=== PATIENT | female | born 1970 | race Caucasian/White ===

== ENCOUNTER 2019-07-08 07:34 | Emergency (ER) | payer OTHER, SELFPAY ==
[2019-07-08 07:37] VITALS: BMI 34.3
--- NOTE | 2019-07-08 07:50 | ED_ITS ---
Entered by Princess Clark, acting as scribe for Josué Sanchez DO HPI - Chest Pain General: Chief Complaint: Chest Pain Stated Complaint: CP Time Seen by Provider: 07/08/19 07:48 Source: patient Mode of arrival: ambulatory Limitations: no limitations History of Present Illness: HPI narrative: 49 yo female presents with chest soreness. 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 pt states she then fell asleep or passed out. pt states she was woke up from her spouse because she was late getting up for work. pt states the soreness is located on L chest. pt has had diarrhea. pt states she has had increased tiredness. pt denies any other symptoms at this time. MD complaint: chest pain and chest discomfort Onset (ago): hour(s) (just tugboat captain) Timing of current episode: constant and still present Prior episodes: No Onset: during rest Pain location: left chest Pain radiation: none Severity: mild Quality: other (soreness) Relieving factors: nothing Exacerbating factors: nothing Associated symptoms: Reports no associated symptoms; Deny abdominal pain, dyspnea, fever(s), nausea or vomiting Treatment prior to arrival: none Review of Systems General: Reports: 10 or more systems reviewed and unremarkable except in HPI and below Const: Reports: fatigue and other (diarrhea); Denies: fever, chills, body aches, change in appetite or change in weight ENMT: Denies: throat pain, ear pain, nasal discharge or nasal congestion Card: Reports: chest pain; Denies: edema, shortness of breath on exertion or shortness of breath when lying down Resp: Denies: shortness of breath, productive cough or non-productive cough GI: Denies: abdominal pain, nausea, vomiting, vomiting blood, coffee grounds in vomit, diarrhea, constipation, bloating, blood in stool or black tarry stool : Denies: flank pain, difficulty urinating, painful urination, urinary frequency or urinary urgency Skin/Breast: Denies: rash or itching PFS ED PFSH: Medical History (Updated 07/08/19 @ 11:23 by Josué Sanchez DO) Lower extremity surgery planned Social History (Updated 05/30/19 @ 17:05 by Gail Spomer-Houts, DIRECTOR OF SUPPLY CHAIN) Smoking and tobacco status: current every day smoker Physical Exam Const: COMMON NORMALS: average body habitus, oriented x3 and alert GENERAL APPEARANCE: cooperative, comfortable, well kempt and well developed NUTRITIONAL APPEARANCE: obese ORIENTATION/CONSCIOUSNESS: Yes awake, Yes oriented to person and Yes oriented to place HENMT: COMMON NORMALS: normocephalic, head/scalp atraumatic, EAC's normal, TM's normal bilaterally, external nose normal, moist oral mucous membranes and oropharynx normal HEAD & SCALP: normocephalic and atraumatic NOSE: external nose normal EXTERNAL AUDITORY CANAL: EAC's normal TYMPANIC MEMBRANE: TM's normal bilaterally MOUTH: oral and palatal mucosa normal, lip normal and tongue normal THROAT: posterior oropharynx normal and tonsils normal Eye: COMMON NORMALS: PERRL, EOMs intact bilaterally, conjunctivae normal and no scleral icterus CONJUNCTIVA: Yes conjunctivae normal PUPIL: Yes PERRL Neck/C-Spine: COMMON NORMALS: full ROM, no lymphadenopathy, supple, no me ningeal signs and thyroid normal THYROID: thyroid normal and asymmetrical Lymph: LYMPHATIC: no lymphadenopathy noted Chest: CHEST: Yes tenderness sternum (Upper left aspect) Resp: COMMON NORMALS: normal respiratory effort, no retractions, no use of accessory muscles and clear to auscultation bilaterally AUSCULTATION: clear to auscultation bilaterally GI: COMMON NORMALS: normal to inspection, nondistended, normoactive bowel sounds, soft to palpation and no hepatosplenomegaly PALPATION: Yes soft and Yes no hepatosplenomegaly : COMMON NORMALS: Yes no CVA tenderness BLADDER/KIDNEY EXAM: Yes no CVA tenderness Back/Pelvis: COMMON NORMALS: no CVA tenderness LUMBAR SPINE/LOWER BACK: Yes normal to inspection Extremity: COMMON NORMALS: no clubbing, cyanosis or edema, no calf tenderness and no pedal edema Neuro: COMMON NORMALS: oriented x3 SENSORIUM/ORIENTATION: Yes alert, Yes oriented to person and Yes oriented to place MENINGEAL SIGNS: Yes no meningeal signs Psych: APPEARANCE: Yes well kempt Skin: COMMON NORMALS: no rashes or lesions noted and skin turgor normal GENERAL SKIN EXAM: no rashes or lesions noted and turgor normal Course ED course: Troponins negative pain mildly reproducible palpation discharged home. Return if has problems Vital Signs: Vital signs: Vital Signs Pulse Rate 72 02/20 11:30 Respiratory Rate 17 07/08/19 11:30 Blood Pressure 129/63 07/08/19 11:30 Pulse Oximetry 99 07/08/19 11:30 MDM - Chest Pain Lab Data: Labs: Lab Results 07/08/19 07/08/19 07/08/19 Range/Units 07:50 07:50 07:50 WBC 6.9 (4.0-10.0) 10^3/ uL RBC 4.29 (4.1-5.3) 10^6/u L Hgb 15.0 (11.5-15.3) g/dL Hct 44.2 (37.0-47.0) % MCV 103.0 H (81-99) fL MCH 35.0 H (28.0-34.0) pg MCHC 33.9 (30.0-36.0) g/dL RDW 13.8 (12.1-15.1) % Plt Count 234 (130-400) 10^3/c mm MPV 10.2 (7.4-10.4) fL Neut % (Auto) 59.3 % Lymph % (Auto) 32.2 % Maries % (Auto) 7.1 % Eos % (Auto) 0.7 % Baso % (Auto) 0.4 % Neut # (Auto) 4.1 (1.8-7.7) 10^3/u L Lymph # (Auto) 2.2 (0.8-4.8) 10^3/u L Maries # (Auto) 0.5 (0.2-0.9) 10^3/u L Eos # (Auto) 0.1 (0.0-0.8) 10^3/u L Baso # (Auto) 0.0 (0.0-0.1) 10^3/u L Nucleated RBC % (a uto) 0 % Nucleated RBCs # 0.0 /100WBC Sodium 139 (136-145) mmol/L Potassium 4.0 (3.5-5.1) mmol/L Chloride 100 (98-107) mmol/L Carbon Dioxide 26 (22-29) mmol/L Anion Gap 17.0 (5-19) BUN 8 (6-20) mg/dL Creatinine 0.8 (0.5-0.9) mg/dL GFR Calculation 76.6 L (90-130) mL/min Glucose 118 H (65-115) mg/dL Calcium 9.5 (8.5-10.5) mg/dL Total Bilirubin 0.3 (0.15-1.2) mg/dL AST 38 H (0-32) U/L ALT 53 H (0-33) U/L Alkaline Phosphata se 81 (35-105) IU/L Troponin T Baselin e 7 (0-10) ng/mL Troponin T 120 Min [place] (0-10) ng/mL Delta Troponin T (0-10) ABS# Total Protein 8.0 (6.6-8.7) g/dL Albumin 4.3 (3.5-5.2) g/dL Globulin 3.7 (1.3-4.6) g/dL 07/08/19 Range/Units 09:50 WBC (4.0-10.0) 10^3/ uL RBC (4.1-5.3) 10^6/u L Hgb (11.5-15.3) g/dL Hct (37.0-47.0) % MCV (81-99) fL MCH (28.0-34.0) pg MCHC (30.0-36.0) g/dL RDW (12.1-15.1) % Plt Count (130-400) 10^3/c mm MPV (7.4-10.4) fL Neut % (Auto) % Lymph % (Auto) % Maries % (Auto) % Eos % (Auto) % Baso % (Auto) % Neut # (Auto) (1.8-7.7) 10^3/u L Lymph # (Auto) (0.8-4.8) 10^3/u L Maries # (Auto) (0.2-0.9) 10^3/u L Eos # (Auto) (0.0-0.8) 10^3/u L Baso # (Auto) (0.0-0.1) 10^3/u L Nucleated RBC % (a uto) % Nucleated RBCs # /100WBC Sodium (136-145) mmol/L Potassium (3.5-5.1) mmol/L Chloride (98-107) mmol/L Carbon Dioxide (22-29) mmol/L Anion Gap (5-19) BUN (6-20) mg/dL Creatinine (0.5-0.9) mg/dL GFR Calculation (90-130) mL/min Glucose (65-115) mg/dL Calcium (8.5-10.5) mg/dL Total Bilirubin (0.15-1.2) mg/dL AST (0-32) U/L ALT (0-33) U/L Alkaline Phosphata se (35-105) IU/L Troponin T Baselin e (0-10) ng/mL Troponin T 120 Min [place] 7.85 (0-10) ng/mL Delta Troponin T 0.85 (0-10) ABS# Total Protein (6.6-8.7) g/dL Albumin (3.5-5.2) g/dL Globulin (1.3-4.6) g/dL Imaging Data^: CXR: Radiologist's impression: [place] [address] XRay Report Signed Patient: Gail Altamirano #: [id number] : 1970Acct#:[id number] Age/Sex: 49 / FADM Date: 07/08/19 Loc: [facility]Bed: Attending Dr: Ordering Provider/Ordering MD: Josué Sanchez DO Date of Service: 07/08/19 Procedure(s): XR chest 1V portable [id number] Accession Number(s): [id number] Report Number: [id number] WS: [id number] PORTABLE CHEST HISTORY: dyspnea/cough COMPARISON: 05/04/2014 Benign granuloma LEFT upper lobe. Stable irregular opacification at the RIGHT lung base may be additional granuloma. No pleural effusion or pneumothorax. Cardiac size: Normal. Mediastinum/Aorta: Calcified LEFT hilar lymph nodes. No osseous abnormality seen. XR/XR chest 1V portable [id number] IMPRESSION: Unremarkable portable chest. Dictated By:Salma Rose DO Signed By:Salma Rose DOSigned Date/Time:07/08/19812 DD/ 1 Discharge Plan Discharge Patient Disposition: Home, Self-Care Clinical Impression: Atypical chest pain Condition: Stable Prescriptions: New Pepcid 40 mg tablet 40 mg PO DAILY Qty: 30 RF: 0 Discharge Orders: Discharge Order (Routine); Ordered 07/08/19 Ordered By: Josué Sanchez Referrals: Tonya Paniagua MD [Primary Care Provider] - Discharge Diet: Usual diet Discharge Activity: Resume usual activity Activity Restrictions/Additional Instructions: Case management will call for a referral to a primary care physician Discharge Date/Time: 07/08/19 11:31 Coding Level of Care Code ED Director Of Rooms for Chg Fwd Exam Problem Focused The documentation recorded by the Eduardo pollock Bridget Annette, accurately reflects the service I personally performed and the decisions made by Laura shankar Curtis L, Jul 08, 2019 07:34
--- NOTE | 2019-07-08 07:54 | XR_ITS ---
WS: [id number] PORTABLE CHEST HISTORY: dyspnea/cough COMPARISON: 05/04/2014 Benign granuloma LEFT upper lobe. Stable irregular opacification at the RIGHT lung base may be additi onal granuloma. No pleural effusion or pneumothorax. Cardiac size: Normal. Mediastinum/Aorta: Calcified LEFT hilar lymph nodes. No osseous abnormality seen. XR/XR chest 1V portable [id number] IMPRESSION: Unremarkable portable chest.
--- NOTE | 2019-07-08 07:54 | ECG_ITS ---
Measurements Intervals [place] Rate: 84 P: 65 SC: 164 QRS: 5 QRSD: 99 T: 44 QT: 383 QTc: 455 SINUS RHYTHM No previous ECG available for comparison Electronically Signed On 07-08-2019 20:47:10 PASTE UP ARTIST by Carol Ann Blankenship M.D. [email or web address]
[2019-07-08 07:56] VITALS: O2SAT 96
[2019-07-08 08:11] LABS: Basophils % 0.4 %; Eosinophils # 0.1 10^3/uL (0.0-0.8); Eosinophils % 0.7 %; Hematocrit 44.2 % (37.0-47.0); Lymphocytes # 2.2 10^3/uL (0.8-4.8); Lymphocytes % 32.2 %; Mean Corpuscular HGB Conc 33.9 g/dL (30.0-36.0); Mean Platelet Volume 10.2 fL (7.4-10.4); Monocytes # 0.5 10^3/uL (0.2-0.9); Monocytes % 7.1 %; Neutrophils # 4.1 10^3/uL (1.8-7.7); Neutrophils % 59.3 %; Nucleated Red Blood Cells % 0 %; Platelet Count 234 10^3/cmm (130-400); Red Blood Count 4.29 10^6/uL (4.1-5.3); Red Cell Distribution Width 13.8 % (12.1-15.1); White Blood Count 6.9 10^3/uL (4.0-10.0)
[2019-07-08 08:28] LABS: Alanine Aminotransferase 53 U/L (0-33); Albumin Level 4.3 g/dL (3.5-5.2); Alkaline Phosphatase 81 IU/L (35-105); Aspartate Amino Transferase 38 U/L (0-32); Blood Urea Nitrogen 8 mg/dL (6-20); Calcium 9.5 mg/dL (8.5-10.5); Carbon Dioxide 26 mmol/L (22-29); Chloride 100 mmol/L (98-107); Globulin 3.7 g/dL (1.3-4.6); Glomerular Filtration Rate 76.6 mL/min (90-130); Glucose 118 mg/dL (65-115); Sodium 139 mmol/L (136-145); Total Bilirubin 0.3 mg/dL (0.15-1.2)
[2019-07-08 08:29] LABS: Troponin(5th) Baseline 7 ng/mL (0-10)
[2019-07-08 10:17] LABS: Troponin 5 2HR 7.85 ng/mL (0-10); Troponin 5 2HR Delta 0.85 ABS# (0-10)
[2019-07-08 11:30] VITALS: BP 129/63; PULSE 72; RESP 17; O2SAT 99
--- NOTE | 2019-07-08 13:54 | ECG_ITS ---
Measurements Intervals [place] Rate: 70 P: 53 SD: 167 QRS: -7 QRSD: 89 T: 29 QT: 414 QTc: 447 SINUS RHYTHM No previous ECG available for comparison Electronically Signed On 07-08-2019 20:51:51 OUTBOARD MOTOR TESTER by Carol Ann Blankenship M.D. [email or web address]
--- NOTE | 2019-07-13 12:24 | DCPLANNER ---
corporate development manager had message to get patient established with a primary care physician. corporate development manager spoke with patient about getting established with a primary care physician. Patient stated that she would like for director of casework to get her established somewhere and schedule a follow up appointment for her. corporate development [place] [facility] [place] and a follow up appointment was scheduled for Thursday, July 20, 2019 at 1:00 with INDEPENDENT DRIVER, Anayeli Holcomb. corporate development manager called patient and informed patient of the scheduled appointment.
--- NOTE | 2019-08-04 10:06 | DCPLANNER ---
Patient did not attend appointment scheduled for 07.20.19 with [facility]
== END 2019-07-08 11:31 | disposition home or self-care (01) ==
PROVIDERS: Emergency Provider Family Medicine; PCP Family Medicine
DX: R07.89 Other chest pain (principal); F17.200 Nicotine dependence, unspecified, uncomplicated
CPT/HCPCS: 36415; 71045; 80053; 84484; 85025; 93005; 99283

== ENCOUNTER → 2021-10-25 13:51 | Outpatient (BNVA) | payer OTHER, SELFPAY | PROVIDERS: PCP Nurse Practitioner; Visit Provider Obstetrics & Gynecology | DX: Z12.4 Encounter for screening for malignant neoplasm of cervix (principal); Z12.39 Encounter for other screening for malignant neoplasm of breast; N95.0 Postmenopausal bleeding | CPT/HCPCS: 83001; 85025; 87624 ==

== ENCOUNTER 2021-11-06 12:07 | Outpatient (CLI) | payer OTHER, SELFPAY ==
--- NOTE | 2021-11-06 11:45 | US_ITS ---
WS: [id number] TRANSABDOMINAL PELVIC AND TRANSVAGINAL PELVIC ULTRASOUND HISTORY: N95.0 - Postmenopausal bleeding COMPARISON: None available. Uterus: 7.0 cm x 4.4 cm x 3.4 cm. Normal size anteverted uterus. Mild heterogeneity within the myomet rium. Hypoechoic mass in the posterior myometrium consistent with fibroid measures 1.6 x 1.5 x 1.0 cm . Endometrium: 0.6 cm. Normal. Endometrium is top normal size. Very slight splaying of the endometrium seen best on image 85. A small central polyp should not be excluded. Right ovary: Not visualized. No adnexal mass. Left ovary: 1.8 cm x 1.7 cm x 1.1 cm. Small ovary. No solid or cystic mass. Normal vascularity. No free fluid. US/US pelvic with transvaginal IMPRESSION: 1. Endometrium is top normal size. No discrete hypoechoic mass identified or i ncreased vascularity. Consider direct visualization or short-term follow-up. Ti ny central hyperechoic polyp is not completely excluded. Please refer to image 85. 2. RIGHT ovary not visualized. 3. Small fibroid.
== END 2021-11-06 12:08 | disposition home or self-care (01) ==
LOC: RAD 12:08
PROVIDERS: PCP Nurse Practitioner; Visit Provider Obstetrics & Gynecology
DX: N95.0 Postmenopausal bleeding (principal)
CPT/HCPCS: 76830; 76856

== ENCOUNTER 2021-11-08 08:15 | Outpatient (CLI) | payer OTHER, SELFPAY ==
--- NOTE | 2021-11-08 08:20 | MM_ITS ---
WS: [id number] SCREENING DIGITAL BREAST TOMOSYNTHESIS MAMMOGRAM WITH CAD HISTORY: SCREEN COMPARISON: None available. Bilateral CC and MLO with tomosynthesis and synthetic mammography submitted. Computer aided detection analyzed. Breast composition: The breasts are heterogeneously dense, which may obscure small masses. Partially obscured masses in the upper outer quadrant of each breast need further evaluation. The lar gest on the RIGHT at a middle depth measures 2.9 x 2.1 cm. On the LEFT the mass measures 2.2 x 1.4 cm and is more anterior. No suspicious calcification or distortion. MM/[place] [id number] IMPRESSION: BI-RADS: 0-Incomplete: Need additional imaging evaluation FOLLOW UP: Need Additional Imaging Bilateral breasts: Spot compression views (CC and MLO). True ML. Ultrasound to follow if abnormality persists.
== END 2021-11-08 08:16 | disposition home or self-care (01) ==
LOC: RAD 08:16
PROVIDERS: Visit Provider Obstetrics & Gynecology
DX: Z12.31 Encounter for screening mammogram for malignant neoplasm of breast (principal)
CPT/HCPCS: 77063; 77067

== ENCOUNTER 2021-12-02 15:19 | Outpatient (CLI) | payer OTHER, SELFPAY ==
--- NOTE | 2021-12-02 15:26 | MM_ITS ---
WS: [id number] ADDITIONAL VIEWS BILATERAL MAMMOGRAM AND BILATERAL BREAST ULTRASOUND, WITH DIGITAL BREAST tomosynthes is. ADDITIONAL VIEWS BILATERAL MAMMOGRAM WITH DIGITAL BREAST TOMOSYNTHESIS AND SM. HISTORY: Inconclusive mammogram. COMPARISON: 11/08/2021 Right breast: Ovoid mass RIGHT breast at a middle depth measures 10 x 8 mm. This is central to the ni pple on the lateral projection and just lateral. This should be near 8-9 o'clock. Left breast: There are 2 partially obscured masses within the LEFT breast at an anterior to middle de pth. The larger mass measures 15 x 14 mm near 2:00. There is a smaller nodule measuring 9 x 10 mm sli ghtly more anterior probably near 3:00. BREAST ULTRASOUND RIGHT breast: 8:00, 4 cm nipple is a hypoechoic mass. Solid mass measuring 9 x 5.9 mm. No increased v ascularity. There is an additional very hypoechoic area measuring 5 x 3 x 10 mm at 7:00. May be a pro minent duct. LEFT breast: LEFT breast 2:00, 3 cm from the nipple is a simple cyst measuring 18 x 10 x 18 mm. Addit ional hypoechoic mass at 3:00, 1 cm from the nipple measures 12 x 8 x 12 mm. Hypoechoic mass which is probably a lymph node at 3:00, 2 cm from nipple measures 8 x 4 x 7 mm. MM/[place] [id number] IMPRESSION: BI-RADS: 4-Suspicious Finding-Biopsy Should Be Considered FOLLOW UP: Biopsy Recommended 1. Ultrasound-guided biopsy solid mass RIGHT breast 8:00, 4 cm from the nipple . 2. Ultrasound-guided biopsy solid hypoechoic mass LEFT breast at 3:00, 1 cm fr om the nipple. 3. Additional simple cyst LEFT breast at 3:00, no biopsy necessary.
== END 2021-12-02 15:20 | disposition home or self-care (01) ==
PROVIDERS: PCP Obstetrics & Gynecology; Visit Provider Obstetrics & Gynecology
DX: R92.8 Other abnormal and inconclusive findings on diagnostic imaging of breast (principal)
CPT/HCPCS: 76642; 77062

== ENCOUNTER 2021-12-27 11:32 | Outpatient (CLI) | payer OTHER, SELFPAY ==
--- NOTE | 2021-12-27 11:52 | US_ITS ---
WS: [id number] ULTRASOUND-GUIDED LEFT BREAST BIOPSY HISTORY: LEFT breast mass at 3:00, 1 cm from the nipple. COMPARISON: 12/02/2021 Procedure, risks and complications are explained to the patient. Medications are reviewed. Consent is obtained. The mass in the LEFT breast is localized with ultrasound. Mass at 3:00, 1 cm from the nipple. Skin is cleansed with ChloraPrep and anesthetized with 1% buffered lidocaine. Small dermatome is made. Under sterile conditions mass is biopsied with a 14-gauge Achieve needle. Multiple core biopsies are perfo rmed. Material placed in formalin and sent to pathology for review. No complications encountered. Breast tissue marker (Bard ultrasound enhanced ribbon): Single. Patient left the radiology suite with no complications. Patient is instructed to return to [facility] or [facility] with any concerns. US/[place] [id number] IMPRESSION: 1. Uncomplicated core needle biopsy LEFT breast mass at 3:00. PATHOLOGY: Benign breast tissue with fibrocystic changes and chronic inflammati on. No malignancy. RECOMMENDATION: Return to annual screening mammography.
--- NOTE | 2021-12-27 11:52 | US_ITS ---
WS: [id number] ULTRASOUND-GUIDED RIGHT BREAST BIOPSY HISTORY: RIGHT breast mass at 8:00. COMPARISON: 12/02/2021 Procedure, risks and complications are explained to the patient. Medications are reviewed. Consent is obtained. The mass in the RIGHT breast is localized with ultrasound. Mass localizes to 8:00, 4 cm from the nipp le. Skin is cleansed with ChloraPrep and anesthetized with 1% buffered lidocaine. Small dermatome is made. Under sterile conditions mass is biopsied with a 14-gauge Achieve needle. Multiple core biopsie s are performed. Material placed in formalin and sent to pathology for review. No complications encou ntered. Breast tissue marker (Bard ultrasound enhanced ribbon): Single. Patient left the radiology suite with no complications. Patient is [place] [facility] [place] [facility] with any concerns. US/[place] [id number] IMPRESSION: 1. Uncomplicated core needle biopsy RIGHT breast mass at 8:00. PATHOLOGY: Usual ductal hyperplasia with fibroadenomatoid changes. No malignanc y. RECOMMENDATION: Return for annual screening mammogram.
== END 2021-12-27 11:33 | disposition home or self-care (01) ==
PROVIDERS: PCP Obstetrics & Gynecology; Visit Provider Obstetrics & Gynecology
DX: N62 Hypertrophy of breast (principal); N63.25 Unspecified lump in the left breast, overlapping quadrants; N63.13 Unspecified lump in the right breast, lower outer quadrant
CPT/HCPCS: 19083; 88305

== ENCOUNTER → 2022-01-07 12:53 | Outpatient (BNVA) | payer OTHER, SELFPAY | PROVIDERS: PCP Obstetrics & Gynecology; Visit Provider Obstetrics & Gynecology | DX: N95.0 Postmenopausal bleeding (principal); N84.0 Polyp of corpus uteri | CPT/HCPCS: 81025; 88305 ==

== ENCOUNTER 2022-02-12 09:39 | Observation (INO) | payer OTHER, SELFPAY ==
[2022-02-10 15:21] VITALS: BMI 34.3
--- NOTE | 2022-02-10 16:03 | P.ANESASSM_ITS ---
Pre-Anesthetic Assessment Height/Weight: Height 1.63 m Weight 90.718 kg Operation Date: 02/12/22 07:00 Proposed Procedures p Total vaginal hysterectomy with bilateral salpingo-oophorectomy 24935,N95.0,N84.0(Not Applicable) - Bob Agustin MD s Salpingo-Oophorectomy (Vaginal)(Bilateral) - Bob Agustin MD Familial anesthetic complications: none Social Alcohol (1-2 shots of whiskey a night) and Tobacco Exam alert, oriented x 3, clear to auscultation bilaterally and regular rate & rhythm Airway Mallampati: Class II Dentition: other (missing teeth) Anesthetic Plan ASA status: 2 Anesthesia: General Risk of > 500 ml blood loss (7ml/kg in children): No Medications/Allergies Home Medications Medication Instructions Recorded Confirmed Last Taken Type No Known Home Medications 10/25/21 02/10/22 Unknown History Allergies Allergy/AdvReac Type Severity Reaction Status Date / Time No Known Allergies Allergy Verified 02/10/22 13:30 [facility] Anesthesia Medical History (Updated 01/07/22 @ 13:37 by Bob Agustin MD) Lower extremity surgery planned Family History (Updated 10/25/21 @ 13:41 by Geneva Ledezma RN) Mother Anesthesia complication Clotting disorder Diabetes Hypertension Breast cancer, Onset Age: 70 Uterine cancer early 60's Grandfather Diabetes paternal Daughter Thyroid condition Grandmother Breast cancer 40's Family/Other Breast cancer maternal aunt 40's or 50's maternal cousins x2 in their 20's Denies family history of Colon cancer Ovarian cancer Heart disease Hyperlipidemia Bleeding disorder Stroke Social History (Updated 05/30/19 @ 17:05 by Gail Hernández LPN) Smoking and tobacco status: current every day smoker (smokes 1 ppd ) Data Anesthesia Cardiac Studies: No Data to Display
[2022-02-12] VITALS (19 sets, daily range): BP systolic 109–137; BP diastolic 62–88; PULSE 53–79; RESP 15–18; TEMP 36.2–36.9; O2SAT 92–100
--- NOTE | 2022-02-12 06:54 | P.HPUD_ITS ---
Surgery/Procedure H&P Update DATE OF PROCEDURE: February 12, 2022 DATE H&P PERFORMED: 02/10/22 H&P UPDATE INFORMATION: I have reviewed H&P completed within last 30 days, I have examined patient prior to procedure and No changes to prior documentation PLANNED PROCEDURE: Operation Date: 02/12/22 07:00 Proposed Procedures p Total vaginal hysterectomy with bilateral salpingo-oophorectomy 91228,N95.0,N 84.0(Not Applicable) - Bob Agustin MD s Salpingo-Oophorectomy (Vaginal)(Bilateral) - Bob Agustin MD
[2022-02-12 06:56] LABS: Basophils # 0.1 10^3/uL (0.0-0.1); Basophils % 0.8 %; Eosinophils # 0.1 10^3/uL (0.0-0.8); Eosinophils % 1.3 %; Hematocrit 38.1 % (37.0-47.0); Hemoglobin 12.9 g/dL (11.5-15.3); Lymphocytes # 2.5 10^3/uL (0.8-4.8); Lymphocytes % 39.3 %; Mean Corpuscular HGB Conc 33.9 g/dL (30.0-36.0); Mean Corpuscular Hemoglobin 35.7 pg (28.0-34.0); Mean Corpuscular Volume 105.5 fl (81-99); Mean Platelet Volume 10.2 fL (7.4-10.4); Monocytes # 0.4 10^3/uL (0.2-0.9); Monocytes % 5.5 %; Neutrophils # 3.35 10^3/uL (1.8-7.7); Neutrophils % 52.8 %; Nucleated Red Blood Cells % 0 %; Platelet Count 189 10^3/cmm (130-400); Red Blood Count 3.61 10^6/uL (4.1-5.3); Red Cell Distribution Width 13.7 % (12.1-15.1); White Blood Count 6.3 10^3/uL (4.0-10.0)
[2022-02-12] MEDS: sodium chloride 0.9% 1,000 ML 30 ML IV (07:03)
[2022-02-12] MEDS: ceFAZolin 2,000 MG in sodium chloride 0.9% (plus) 50 ML 100 MG IV (07:08)
[2022-02-12 07:38] LABS: Alanine Aminotransferase 32 U/L (0-33); Albumin Level 4.4 g/dL (3.5-5.2); Alkaline Phosphatase 63 U/L (35-105); Anion Gap 15.9 (5-19); Aspartate Amino Transferase 29 U/L (0-32); Blood Urea Nitrogen 18 mg/dL (6-20); Carbon Dioxide 23 mmol/L (22-29); Chloride 101 mmol/L (98-107); Creatinine Clr Calc Pharmacy 81.5849; Globulin 2.9 g/dL (1.3-4.6); Glomerular Filtration Rate 66.3 mL/min (90-130); Glucose 107 mg/dL (65-115); Osmolality Calculated 284 mOsm/kg (285-295); Potassium 3.9 mmol/L (3.5-5.1); Sodium 136 mmol/L (136-145); Total Bilirubin 0.4 mg/dL (0.15-1.2); Total Protein 7.3 g/dL (6.6-8.7)
--- NOTE | 2022-02-12 07:40 | SUR.OPER ---
Family Notified Of Patient's Status Via Phone.
--- NOTE | 2022-02-12 08:31 | SUR.OPER ---
Family Notified Of Patient's Status Via Phone.
--- NOTE | 2022-02-12 08:35 | P.OP_ITS ---
Operative Report Date of procedure: February 12, 2022 Pre-op diagnosis: Postmenopausal bleeding. Endometrial polyp Post-op diagnosis: Same as above Post-op findings: Normal size uterus, left and right fallopian tube and ovary Procedure done: Total vaginal hysterectomy and bilateral salpingo-oophorectomy Specimens removed/disposition: Uterus Left and right fallopian tube. Left and right ovaries Surgeon: Bob Agustin MD Estimated blood loss (mL): 100 IV fluids (mL): 700 Urine output (mL): 200 Complications: None Brief History: Mrs. Altamirano 51-year-old female G6, P2, with a history of postmenopausal bleeding endometrial polyp. Decided for hysterectomy as a definite treatment. Procedure: After informed consent and risks, benefits, indications and alternatives reviewed with the patient was taken to the operating room. The patient was placed in dorsal lithotomy position prepped, and draped in the usual sterile fashion. The pre-procedure timeout verifying the correct patient, procedure, site and side, could not requirements was performed and acknowledge by the OR team. A Arevalo catheter was placed. A Bookwalter vaginal retractor was placed into the vagina in usual manner visualize the cervix. Cervix was grasped with a single tooth tenaculum and circumferentially infiltrated with 1% lidocaine with epinephrine. Then cervix was circumferentially incised with bovie and the bladder was dissected off the pubovesical cervical fascia anteriorly with a sponge stick and Metzenbaum scissors. The anterior peritoneal reflection was identified and the anterior cul-de-sac was entered sharply with Metzenbaum scissors. The same procedure was performed posteriorly and a posterior colpotomy was made through the posterior cul-de-sac space without difficulty and the posterior blade of the Bookwalter vaginal retractor was advanced posteriorly into the cul-de-sac. At this time, the left and right uterosacral ligaments were isolated and ligated with 0 Vicryl. The Voyant device was placed over the uterosacral ligaments on either side and was then used in a serial fashion up through the cardinal ligaments bilaterally cross-clamped, cut, and sealed with the Voyant device. Finally, the uterine arteries were cross-clamped, cut, sealed and ligated with the Voyant device. Hemostasis was assured. The broad ligaments were then serially clamped, sealed and cut with the Voyant device on both sides. Excellent hemostasis was visualized. Both cornua were clamped, sealed and cut with the LigaSure/Voyant device. Then the pedicles were then suture ligated with excellent hemostasis. The uterus was excised and submitted for pathologic evaluation. No other abnormalities were noted in the pelvic cavity. Then the right side Infundibular ligament was identified. The ureter was confirmed along the pelvic side wall and peristalsis was noted. The Voyant device was then used to clamp, sealed and transcepted at middistance, again being sure to be clear of the ureter and the fallopian tube and ovary were r emoved. The same process was then repeated on the left side. Good hemostasis was assure on both sides. The peritoneum was then closed in a pursestring fashion with 0 Vicryl suture. The vaginal cuff angles were closed with [id number] #0 Vicryl suture on both sides and transfixed with the ipsilateral cardinal and uterosacral ligaments. The patient was given methylene blue IV. The remainder of the vaginal cuff was closed with #0 Vicryl in a running locked fashion. At this time, instruments were removed from the vagina at hemostasis assured. The Arevalo catheter was noted yielding clear buddy urine. The patient was taken out of dorsal lithotomy position and awakened from the general anesthesia. The patient tolerated the procedure well and was taken to the PACU recovery room in a stable condition. Sponge, lap, needle and instruments counts were correct x3.
[2022-02-12] MEDS: fentaNYL 50 mcg/mL INJ 2mL IVP (09:20)
--- NOTE | 2022-02-12 09:42 | SUR.PHASEI ---
0838 Pt to PACU SCDs on and connected to pump. 0943 Attemped twice to contact by phone, no answer.
[2022-02-12] MEDS: dextrose 5%-lactated ringers 1,000 ML 125 ML IV ×2 (11:00→19:20)
[2022-02-12] MEDS: ketorolac 30 mg/mL INJ IVP ×3 (11:01→22:51)
--- NOTE | 2022-02-12 15:11 | ANE.PACU2 ---
Inpatient post-anesthesia follow up: Airway intact: Yes Vital signs: Temperature 97.2 F Pulse Rate 58 Respiratory Rate 18 Blood Pressure 109/68 Pulse Oximetry 98 Oxygen Delivery Me thod Nasal Cannula Oxygen Flow Rate 2 Fraction of Inspir ed Oxygen Hydration adequate: Yes Nausea and vomiting: No Pain level: 1 Mental status: Baseline
[2022-02-12] MEDS: docusate sodium 100 mg Capsule PO (18:01)
[2022-02-12] MEDS: HYDROcodone-acetaminophen 5-325 mg Tablet PO (20:33)
[2022-02-13] MEDS: dextrose 5%-lactated ringers 1,000 ML 125 ML IV (03:29)
[2022-02-13] MEDS: ketorolac 30 mg/mL INJ IVP (04:20)
[2022-02-13 04:25] VITALS: BP 120/77; PULSE 51; RESP 18; TEMP 36.6; O2SAT 97
[2022-02-13 05:09] LABS: Hematocrit 36.4 % (37.0-47.0); Hemoglobin 12.2 g/dL (11.5-15.3); Mean Corpuscular HGB Conc 33.5 g/dL (30.0-36.0); Mean Corpuscular Hemoglobin 35.9 pg (28.0-34.0); Mean Corpuscular Volume 107.1 fl (81-99); Mean Platelet Volume 10.2 fL (7.4-10.4); Platelet Count 196 10^3/cmm (130-400); White Blood Count 11.3 10^3/uL (4.0-10.0)
--- NOTE | 2022-02-13 05:52 | PC.NURSE ---
I removed her solis at this time. 10ml of water was removed from ballon and then solis was removed. Patient tolerated procedure well.
[2022-02-13] MEDS: ibuprofen 800 mg tablet PO (09:11)
[2022-02-13] MEDS: docusate sodium 100 mg Capsule PO (09:11)
[2022-02-13 09:14] VITALS: BP 141/79; PULSE 57; RESP 17; TEMP 36.5; O2SAT 97
[2022-02-13] MEDS: HYDROcodone-acetaminophen 5-325 mg Tablet PO (10:02)
--- NOTE | 2022-02-13 11:19 | P.DS_ITS ---
Discharge Providers PULL UP HAND Date of Admission: 02/12/22 09:39 Date of Discharge: 02/13/22 Attending Provider at Admission: Bob Agustin MD Attending Provider at Discharge: Bob Agustin MD Primary PULL UP HAND: Bob Agustin MD Reason for Visit Reason for Visit: N84.0; N95.0 Hospital Course Hospital Course Mrs. Altamirano 51-year-old female with a history of postmenopausal bleeding admitted for planned total vaginal hysterectomy with bilateral salpingo- oophorectomy. The procedure was performed without complication. Overnight observation was uneventful. Adequate urine output. She is afebrile and hemodynamically stable postoperative day 1. Tolerating diet well. Ambulating without difficulty. Counseled regarding pelvic rest for 6 weeks (no sex, no tampons, no vaginal douches). Return to the emergency room if any fever, increased bleeding or pain and no heavy lifting over 10 pounds. Physical Exam Narrative: GA: Alert and oriented ?3. HEENT: WNL. Heart: Regular rate and rhythm. Lungs: Clear to auscultation bilaterally. Abdomen: Bowel sounds present, nontender, minimal tenderness, incision clean and dry, no redness, pain or edema. 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 Extremities: No edema, no cyanosis, no calves pain. Urinary Catheter Management: [place]: Cath Placed During This Visit: yes Urinary Catheter Date of Insertion: 02/12/22 Urinary Catheter Time of Insertion: 07:18 History History History 6 Term 2 0 Miscarriages/Ectopic 4 Living Children 2 Discharge Data Studies Completed and Pending Pending at discharge Category Date Time Status Pathology: Surgical [PTH] Routine Pth 02/12/22 08:49 Received Laboratory Results WBC 11.3 10^3/uL (4.0-10.0) H 02/13/22 05:00 RBC 3.40 10^6/uL (4.1-5.3) L 02/13/22 05:00 Hgb 12.2 g/dL (11.5-15.3) 02/13/22 05:00 Hct 36.4 % (37.0-47.0) L 02/13/22 05:00 MCV 107.1 fl (81-99) H 02/13/22 05:00 MCH 35.9 pg (28.0-34.0) H 02/13/22 05:00 MCHC 33.5 g/dL (30.0-36.0) 02/13/22 05:00 RDW 14.0 % (12.1-15.1) 02/13/22 05:00 Plt Count 196 10^3/cmm (130-400) 02/13/22 05:00 MPV 10.2 fL (7.4-10.4) 02/13/22 05:00 Neut % (Auto) 52.8 % 02/12/22 06:20 Lymph % (Auto) 39.3 % 02/12/22 06:20 [place] % (Auto) 5.5 % 02/12/22 06:20 Eos % (Auto) 1.3 % 02/12/22 06:20 Baso % (Auto) 0.8 % 02/12/22 06:20 Neut # (Auto) 3.35 10^3/uL (1.8-7.7) 02/12/22 06:20 Lymph # (Auto) 2.5 10^3/uL (0.8-4.8) 02/12/22 06:20 [place] # (Auto) 0.4 10^3/uL (0.2-0.9) 02/12/22 06:20 Eos # (Auto) 0.1 10^3/uL (0.0-0.8) 02/12/22 06:20 Baso # (Auto) 0.1 10^3/uL (0.0-0.1) 02/12/22 06:20 Nucleated RBC % (auto) 0 % 02/12/22 06:20 Nucleated RBCs # 0.0 /100WBC 02/12/22 06:20 Sodium 136 mmol/L (136-145) 02/12/22 06:20 Potassium 3.9 mmol/L (3.5-5.1) 02/12/22 06:20 Chloride 101 mmol/L (98-107) 02/12/22 06:20 Carbon Dioxide 23 mmol/L (22-29) 02/12/22 06:20 Anion Gap 15.9 (5-19) 02/12/22 06:20 BUN 18 mg/dL (6-20) 02/12/22 06:20 Creatinine 0.9 mg/dL (0.5-0.9) 02/12/22 06:20 GFR Calculation 66.3 mL/min (90-130) L 02/12/22 06:20 Glucose 107 mg/dL (65-115) 02/12/22 06:20 Calculated Osmolality 284 mOsm/kg (285-295) L 02/12/22 06:20 Calcium 9.0 mg/dL (8.5-10.5) 02/12/22 06:20 Total Bilirubin 0.4 mg/dL (0.15-1.2) 02/12/22 06:20 AST 29 U/L (0-32) 02/12/22 06:20 ALT 32 U/L (0-33) 02/12/22 06:20 Alkaline Phosphatase 63 U/L (35-105) 02/12/22 06:20 Total Protein 7.3 g/dL (6.6-8.7) 02/12/22 06:20 Albumin 4.4 g/dL (3.5-5.2) 02/12/22 06:20 Globulin 2.9 g/dL (1.3-4.6) 02/12/22 06:20 Blood Type A Positive 02/12/22 06:20 Rho(D) Type Positive 02/12/22 06:20 Antibody Screen Negative 02/12/22 06:20 Vitals Last Vital Signs Temp 97.7 F 02/13/22 09:14 Pulse 57 L 02/13/22 09:14 Resp 17 02/13/22 09:14 BP 141/79 02/13/22 09:14 Pulse Ox 97 02/13/22 09:14 O2 Del Method 02/13/22 09:14 O2 Flow Rate 2 02/12/22 12:06 Discharge Plan Discharge Patient Disposition: Home Condition: Stable Prescriptions: New acetaminophen 325 mg capsule 325 mg PO Q4H PRN (Reason: fever or pain) Qty: 60 0RF ibuprofen 800 mg tablet 800 mg PO TID PRN (Reason: pain) Qty: 60 0RF hydrocodone-acetaminophen 5-325 mg tablet 1 tab PO Q4H PRN (Reason: pain) Qty: 20 0RF Discharge Orders: Discharge Order (Routine); Ordered 02/13/22 Ordered By: Bob Agustin Referrals: Bob Agustin MD [Physician] - 2 weeks Discharge Diet: Advance as tolerated and Usual diet Discharge Activity: Limit activity as instructed Patient Instructions: Opioid Safety, Vaginal Hysterectomy (GEN), Salpingo- Oophorectomy (GEN) Activity Restrictions/Additional Instructions: 1. Please call [facility] on next working day to make your post-operative appointment in 2 weeks. 2. Please stay home until you come back to the clinic on first post-operative check up. 3. Please follow instructions on your medications CAREFULLY. 4. If you have abdominal incision, do not cover it unless dressing is necessary because of drainage. OK to shower, but avoid bath. Leave steri-strips until they fall off. If they are still on one week after surgery, you may remove them. 5. If you had vaginal surgery or vaginal repair, Dr. Agustin may instruct you to take SITZ bath. 6. Yellow, blood tinged odorous vaginal discharge is usually normal after hysterectomy or vaginal surgeries. 7. No sexual intercourse, tampons, or douches until you are completely released from the post-operative care. 8. Avoid constipation by eating right and maybe using some Metamucil or Milk of Magnesia. 9. All prescription refills are given during the working hours. Please do no wait till it runs out. Call the clinic at [phone] before your medication runs out. The clinic will get in touch with your doctor to prescribe medications if necessary. 10. Please remain within 40 mile radius from our hospital because emergencies do happen now and then during the post-operative period. 11. If you have stairs at home, take one step at a time slowly and minimize the number of trips. It helps to stay in one floor for the next few days. No li fting except what you can lift by one hand until you are released from the post- operative care. 12. Driving is discouraged until you are well healed. It may be 3-4 weeks before you feel strong enough to drive. You should be able to turn and look through the rear window without pain and you should be able to push the brake pedal very hard without pain before you drive. No fast rules, but SAFETY should be your primary concern. DO NOT drive if you are on sedating medications such as narcotics. 13. Call the clinic (during working hours) to make urgent appointment or go to the Emergency room, if any of the following occurs: i. Vaginal bleeding becomes heavy, more than a period. ii. Incision becomes red and sore, or drains pus. iii. Your temperature is over 100.4 or you have chill. iv. IV site becomes red and swollen (a little ``knot?? is usually OK) v. Persistent nausea and vomiting vi. Persistent constipation or diarrhea vii. Rash or allergic reaction to medications. Discharge Attestations PULL UP HAND Time Spent in Discharge Care*: greater than 30 min Coding Level of Care Code Acute Supervisor Network Control Operators for Isabel Schwarz
[2022-02-13 11:55] VITALS: BP 127/83; PULSE 53; RESP 15; TEMP 36.6
[2022-02-13 11:56] VITALS: BP 127/83; PULSE 53; RESP 15; TEMP 36.6
== END 2022-02-13 12:39 | disposition home or self-care (01) ==
LOC: OBGYN 09:40
PROVIDERS: Admitting Provider Obstetrics & Gynecology; Visit Provider Obstetrics & Gynecology
PROC: (CPT 58262; principal; 2022-02-12 07:00)
PROC: (CPT 58720; 2022-02-12 07:00)
DX: N95.0 Postmenopausal bleeding (principal); F17.210 Nicotine dependence, cigarettes, uncomplicated
CPT/HCPCS: 58262; 36415; 51702; 80053; 85025; 85027; 86850; 86900; 88307; G0378; J1100; J1170; J1885; J2250; J2370; J2405; J2704; J2710; J3010; J3490; J7030; Q9968